=== PATIENT | male | born 1970 | race Caucasian/White ===

== ENCOUNTER 2018-12-10 13:54 | Emergency (ER) | payer SELFPAY ==
[2018-12-10] MEDS ORDERED: Fentanyl 100 MCG/2 ML VIAL ONE (14:24)
[2018-12-10] MEDS ORDERED: HYDROmorphone 0.5 MG/0.5 ML SYRINGE ONE (15:10)
== END 2018-12-10 15:50 | disposition home or self-care (01) ==
LOC: ERS 13:54
DX: M54.5 Low back pain (principal); F17.210 Nicotine dependence, cigarettes, uncomplicated
CPT/HCPCS: 96374; 96375; J1170; J3010

== ENCOUNTER 2018-12-12 18:47 | Emergency (ER) | payer SELFPAY ==
[~2018-12-12 18:47] MED LIST: ISOVUE-370 76%-LOCM 1 ML ONE
[2018-12-12 19:48] LABS: Bilirubin Negative (Negative); Blood, Urine Negative (Negative); Clarity Clear (Clear); Glucose, Urine (Dipstick) Normal (Negative); Leukocyte Negative Leu/uL (Negative); Nitrite Negative (Negative); Protein, Urine (Dipstick) Negative (Neg-Trace); Urobilinogen Normal mg/dL (Less than 2)
[2018-12-12 20:08] LABS: #Lymphocytes 1.5 thou/uL (1.20-3.40); #Monocytes 0.2 thou/uL (0.11-0.59); #Neutrophils 9.7 thou/uL (1.40-6.50); %Basophils 0.2 % (0.0-1.0); %Eosinophils 0.3 % (0.0-10.0); %Lymphocytes 12.8 % (21.0-51.0); %Monocytes 1.9 % (0.0-10.0); %Neutrophils 84.9 % (42.0-75.0); Hemoglobin 17.7 g/dL (14.0-18.0); Mean Corpuscular HGB CONC 35.4 g/dL (32.0-36.0); Mean Corpuscular Hemoglobin 32.8 pg (27.0-31.0); Mean Corpuscular Volume 92.6 fL (78.0-98.0); Mean Platelet Volume 7.1 fL (7.4-10.4); Platelet Count 321 thou/uL (130-400); RBC Distribution Width 11.7 % (11.5-14.5); Red Blood Cell (RBC) Count 5.41 mill/uL (4.70-6.10); White Blood Cell (WBC) Count 11.5 thou/uL (4.8-10.8)
[2018-12-12] MEDS ORDERED: HYDROmorphone 0.5 MG/0.5 ML SYRINGE ONE ×2 (20:15→23:51)
[2018-12-12 20:30] LABS: ALT (SGPT) 48 U/L (8-55); AST (SGOT) 34 U/L (5-34); Albumin 4.6 g/dL (3.5-5.0); Alkaline Phosphatase 105 U/L (40-110); Anion Gap 21 mmol/L (10-20); BUN (Urea Nitrogen) 9 mg/dL (8.9-20.6); Bilirubin, Total 0.6 mg/dL (0.2-1.2); Calc. Creatinine Clearance 0 mL/min (70-130); Calcium 10.4 mg/dL (7.8-10.44); Carbon Dioxide 19 mmol/L (22-29); Chloride 99 mmol/L (98-107); Estimated GFR-MDRD Greater than 90; Glucose 80 mg/dL (70-105); Lipase 23 U/L (8-78); Protein, Total 8.6 g/dL (6.0-8.3); Sodium 135 mmol/L (136-145)
[2018-12-12] MEDS ORDERED: Ketorolac Tromethamine 30 MG/ML VIAL ONE (20:34)
--- NOTE | 2018-12-12 21:36 | CT ---
CT Abdomen Pelvis W Con HISTORY: Back right hip and right testicular pain. COMPARISON: None. FINDINGS: The lung bases are clear of infiltrates. The liver and spleen show no focal abnormalities. Pancreas and gallbladder regions are normal Right and left adrenal glands and right and left kidneys are normal in size. Small hypodensity involv ing the left kidney is statistically most likely a cyst. No obstruction. There are small nonspecific periaortic lymph nodes. No significant mesenteric adenopathy. Stomach is mildly distended . A moderate amount of stool seen within the colon, particularly the right colon. CT of pelvis performed with intravenous contrast enhancement: There is no evidence of any significant adenopathy or mass. The appendix is difficult to visualize but the portions seen appear unremarkable. No free fluid. There are arthritic changes of the spine. IMPRESSION: No acute findings of abdomen or pelvis.
--- NOTE | 2018-12-12 23:23 | ULT ---
US Testicular W Doppler HISTORY: Bilateral testicular pain. COMPARISON: None. FINDINGS: Real-time imaging of the right and left testes were performed. The right testicle measures 4.7 cm, the left 4.9 cm in length. Both testicles show a mildly heterogeneous echotexture without focal discrete mass. The right and left epididymal regions appear unremarkable. Doppler evaluation with spectral analysis: Normal flow shown to both testes and epididymal regions. Small bilateral hydroceles are present. IMPRESSION: Essentially unremarkable testicular ultrasound.
[2018-12-15 22:27] LABS: Chlam.trachomatis by PCR,Urine Not Detected (NotDetected)
== END 2018-12-13 00:38 | disposition home or self-care (01) ==
LOC: ERS 18:47
DX: M54.5 Low back pain (principal); M19.90 Unspecified osteoarthritis, unspecified site; F41.9 Anxiety disorder, unspecified; F32.9 Major depressive disorder, single episode, unspecified; F17.210 Nicotine dependence, cigarettes, uncomplicated
CPT/HCPCS: 36415; 74177; 76870; 80053; 81003; 83690; 85025; 85652; 86140; 87491; 87591; 93976; 96361; 96374; 96375; 96376; J1170; J1885; Q9966

== ENCOUNTER 2018-12-15 12:46 | Emergency (ER) | payer SELFPAY ==
[2018-12-15 14:18] LABS: #Basophils 0.1 thou/uL (0.0-0.2); #Eosinphils 0.1 thou/uL (0.0-0.7); #Lymphocytes 3.5 thou/uL (1.20-3.40); #Monocytes 0.7 thou/uL (0.11-0.59); %Basophils 0.6 % (0.0-1.0); %Eosinophils 0.7 % (0.0-10.0); %Lymphocytes 28.6 % (21.0-51.0); %Monocytes 5.4 % (0.0-10.0); %Neutrophils 64.7 % (42.0-75.0); Mean Corpuscular Hemoglobin 32.3 pg (27.0-31.0); Mean Corpuscular Volume 92.3 fL (78.0-98.0); Mean Platelet Volume 6.9 fL (7.4-10.4); Platelet Count 275 thou/uL (130-400); RBC Distribution Width 11.5 % (11.5-14.5); Red Blood Cell (RBC) Count 5.27 mill/uL (4.70-6.10); White Blood Cell (WBC) Count 12.3 thou/uL (4.8-10.8)
[2018-12-15 14:39] LABS: ALT (SGPT) 30 U/L (8-55); AST (SGOT) 21 U/L (5-34); Albumin 4.2 g/dL (3.5-5.0); Alkaline Phosphatase 86 U/L (40-110); Anion Gap 14 mmol/L (10-20); BUN (Urea Nitrogen) 13 mg/dL (8.9-20.6); Bilirubin, Total 0.8 mg/dL (0.2-1.2); Calc. Creatinine Clearance 0 mL/min (70-130); Calcium 9.8 mg/dL (7.8-10.44); Carbon Dioxide 26 mmol/L (22-29); Chloride 100 mmol/L (98-107); Estimated GFR-MDRD Greater than 90; Globulin 3.2 g/dL (2.4-3.5); Glucose 100 mg/dL (70-105); Potassium 3.6 mmol/L (3.5-5.1); Protein, Total 7.4 g/dL (6.0-8.3); Sodium 136 mmol/L (136-145)
[2018-12-15] MEDS ORDERED: Fentanyl 100 MCG/2 ML VIAL ONE (14:43)
== END 2018-12-15 16:21 | disposition home or self-care (01) ==
LOC: ERS 12:46
DX: M25.551 Pain in right hip (principal); F41.9 Anxiety disorder, unspecified; F32.9 Major depressive disorder, single episode, unspecified; F17.210 Nicotine dependence, cigarettes, uncomplicated
CPT/HCPCS: 36415; 80053; 85025; 96361; 96374; J3010